=== PATIENT | female | born 1990 | race Caucasian/White ===

== ENCOUNTER → 2020-11-15 | Outpatient (CLI) | payer OTHER ==
[~2020-11-15] MED LIST: COLACE 100MG C100 MG PO; IBUPROFEN600 MG PO; LEVOTHYROXINE25 MCG PO; LORTAB 5-325 M1 EACH PO; PROVENTIL HFA6.7 GM INH; ZYRTEC10 MG PO
== END ==
LOC: KOH-I 15:53
DX: E04.9 Nontoxic goiter, unspecified (principal)
CPT/HCPCS: 76536

== ENCOUNTER → 2021-02-05 | Outpatient (CLI) | payer OTHER ==
[2021-02-05 19:05] LABS: BUN/CREATININE RATIO 24 (0-10)
== END ==
LOC: LAB 17:10
PROVIDERS: Internal Medicine Endocrinology, Diabetes & Metabolism
DX: E03.9 Hypothyroidism, unspecified (principal); Z79.899 Other long term (current) drug therapy
CPT/HCPCS: 80053; 84439; 84443

== ENCOUNTER → 2021-04-02 | Outpatient (CLI) | payer OTHER ==
[2021-04-02 13:49] LABS: BUN/CREATININE RATIO 22 (0-10)
== END ==
LOC: LAB 12:24
PROVIDERS: Internal Medicine Endocrinology, Diabetes & Metabolism
DX: E06.3 Autoimmune thyroiditis (principal); E83.51 Hypocalcemia; Z79.899 Other long term (current) drug therapy
CPT/HCPCS: 36415; 80053; 80061; 84436; 84443

== ENCOUNTER → 2021-07-03 | Outpatient (CLI) | payer OTHER | LOC: EXRD 10:57 | DX: E06.3 Autoimmune thyroiditis (principal); E03.9 Hypothyroidism, unspecified; E04.1 Nontoxic single thyroid nodule | CPT/HCPCS: 76536 ==

== ENCOUNTER → 2021-11-05 | Outpatient (CLI) | payer OTHER | LOC: KOH-I 14:11 | DX: M25.572 Pain in left ankle and joints of left foot (principal); M79.672 Pain in left foot | CPT/HCPCS: 73610; 73630 ==